=== PATIENT | male | born 1955 | race Caucasian/White ===

== ENCOUNTER 2016-08-11 23:40 | Emergency (ER) | payer OTHER ==
[~2016-08-11 23:40] MED LIST: ADVIL PO; AT25 PO; B121000P IM; BEN25 PO; BUM1 PO; CELEXA10 PO; FLEX PO; IMOD PO; JANTOVEN10 MG PO; KLOR-CON20 MEQ PO; L40 PO; LOP25 PO; NEUR300 PO; NORCO1 TA2 PO; P10 PO; PREDFORTE OPH; PRIN10 PO; PRIN20 PO; TRAZ50 PO; ULTRAM50 PO; WELLXL150 PO; Z5 PO
[2016-08-12 01:09] LABS: BASOPHILS ABSOLUTE 0.05 10/3/uL (0.0-0.16); EOSINOPHILS ABSOLUTE 0.34 10/3/uL (0.0-0.53); HEMOGLOBIN 9.7 g/dL (13.6-17.8); IMMATURE GRANULOCYTES 0.2 %; IMMATURE GRANULOCYTES ABSOLUTE 0.01 10/3/uL (0.0-0.11); LYMPHOCYTES 37.5 %; LYMPHOCYTES ABSOLUTE 1.83 10/3/uL (0.67-4.30); MEAN CORPUS HGB CONC 35.9 g/dL (32.0-36.0); MEAN CORPUSCULAR HEMOGLOB 31.5 pg (26.0-34.0); MEAN CORPUSCULAR VOLUME 87.7 fL (80-100); MEAN PLATELET VOLUME 9.1 fL (9.2-13.0); MONOCYTES 17.8 %; MONOCYTES ABSOLUTE 0.87 10/3/uL (0.21-1.20); NEUTROPHILS 36.5 %; NEUTROPHILS ABSOLUTE 1.78 10/3/uL (2.02-8.40); RBC DISTRIBUTION WIDTH 14.4 % (12.0-16.0); RED CELL COUNT 3.08 10/6/uL (4.7-6.1)
[2016-08-12 01:11] LABS: ER CBC TAT 0 Hrs 00 Mins; PLATELET COUNT 340 10/3/uL (150-400); WHITE BLOOD CELLS 4.9 10/3/uL (4.5-10.5)
[2016-08-12 01:12] LABS: MANUAL DIFF NO %
[2016-08-12 01:24] LABS: A/G RATIO 0.6 (0.7-1.9); ALBUMIN 2.2 G/DL (3.5-5.0); ALKALINE PHOSPHATASE 72 U/L (45-117); BUN (BLOOD UREA NITROGEN) 4 MG/DL (6-23); CALCIUM, SERUM 7.8 MG/DL (8.5-10.4); CREATININE 0.43 MG/DL (0.70-1.30); GFR AFRICAN AMERICAN 143 ML/MIN (>=60); GFR NON AFRICAN AMERICAN 124 ML/MIN (>=60); GLOBULIN 3.8 G/DL (2.5-4.1); GLUCOSE, SERUM 88 MG/DL (60-99); SGOT(AST) 27 U/L (5-40); SGPT(ALT) 14 U/L (5-65); SODIUM, SERUM 128 MMOL/L (135-148)
[2016-08-12 01:29] LABS: CHLORIDE, SERUM 84 MMOL/L (96-112); CO2 (CARBON DIOXIDE) 32 MMOL/L (24-34); POTASSIUM, SERUM 2.5 MMOL/L (3.5-5.3)
== END 2016-08-12 03:15 | disposition home or self-care (01) ==
LOC: ER 23:40
PROVIDERS: Emergency Medicine
PROC: 0HQ0XZZ Repair Scalp Skin, External Approach (ICD-10-PCS; principal; 2016-08-11)
DX: S01.01XA Laceration without foreign body of scalp, initial encounter (principal); F32.9 Major depressive disorder, single episode, unspecified; F41.9 Anxiety disorder, unspecified; D64.9 Anemia, unspecified; Z87.891 Personal history of nicotine dependence; Z88.0 Allergy status to penicillin; Z79.899 Other long term (current) drug therapy; Z79.52 Long term (current) use of systemic steroids; W19.XXXA Unspecified fall, initial encounter; Y92.009 Unspecified place in unspecified non-institutional (private) residence as the place of occurrence of the external cause
CPT/HCPCS: 70450; 80053; 81001; 83735; 85025; 90471; 90714; 99284; A9270-GY